=== PATIENT | male | born 1970 | race Caucasian/White ===

== ENCOUNTER 2018-08-20 10:51 | Emergency (ER) | payer OTHER ==
[~2018-08-20] VITALS: Ht 182.9 cm; Wt 90.7 kg
[~2018-08-20 10:51] MED LIST: ADDERALL; PERCOCET 5-3251 EACH PO; ZOFRAN4 MG PO
[2018-08-20] MEDS ORDERED: NOHOMEMEDICATIONS (11:02)
[2018-08-20] MEDS ORDERED: BACTRIM DS TAB1 EACH PO (11:08)
[2018-08-20] MEDS ORDERED: KEFLEX500 M1 PO (11:08)
[2018-08-20] MEDS ORDERED: IBUPROFEN 800800 M1 PO (11:11)
[2018-08-20 11:20] VITALS: BP 180/136
== END 2018-08-20 11:29 | disposition home or self-care (01) ==
LOC: M.ERS 10:51
DX: L02.511 Cutaneous abscess of right hand (principal); Z87.442 Personal history of urinary calculi